=== PATIENT | male | born 1960 | race American Indian/Alaskan Native ===

== ENCOUNTER 2018-05-02 07:58 | Day surgery (SDC) | payer MEDICAID ==
[2015-10-10 10:48] VITALS: BMI 27.1
[2018-05-02 08:52] VITALS: TEMP 98
--- NOTE | 2018-05-02 09:11 | CP.SDSHP ---
Same Day Surgery H & P - History Proposed Procedure: colonoscopy - Previous Medical/Surgical History Endocrine/Metabolic: Diabetes - Allergies Allergies: Allergies No Known Allergies Allergy (Verified 10/08/15 12:19) - Physical Exam Vital Signs: Vital Signs 05/02/18 08:30 Temperature 98 F Pulse Rate 80 Respiratory 18 Rate Blood Pressure 124/68 O2 Sat by Pulse 97 Oximetry - Date & Time Date: 05/02/18 Time: 09:11 Short Stay Discharge - Short Stay Discharge Admitting Diagnosis/Reason for Visit: ENCOUNTER FOR SCREENING FOR MALIGNANT NEOPLASM OF Disposition: HOME/ ROUTINE
[2018-05-02] MEDS ORDERED: Propofol 10 mg/ml Inj (20 ML) ONE ×2 (09:18→09:42)
[2018-05-02] MEDS ORDERED: Midazolam 2 MG/2 ML VIAL ONE (09:18)
[2018-05-02 10:25] VITALS: RESP 12; O2SAT 100
[2018-05-02 10:43] VITALS: BP 125/78; PULSE 69
== END 2018-05-02 11:00 | disposition home or self-care (01) ==
LOC: C.ENDO 07:58
PROVIDERS: ATTEND Colon & Rectal Surgery
DX: Z12.11 Encounter for screening for malignant neoplasm of colon (principal); D12.6 Benign neoplasm of colon, unspecified; K64.8 Other hemorrhoids
CPT/HCPCS: 45385; 82948; 88305; J2250; J2704